=== PATIENT | male | born 1960 | race Caucasian/White ===

== ENCOUNTER 2017-10-05 16:51 | Emergency (ER) | payer BC ==
[~2017-10-05] VITALS: Ht 172.7 cm; Wt 117.9 kg
[~2017-10-05 16:51] MED LIST: Norco 5-325 Ta1 EACH PO; XARELTO15 MG PO
[2017-10-05] MEDS ORDERED: Norco 10-325 T1 EACH PO (18:58)
[2017-10-05] MEDS ORDERED: Silvadene20 GM TOP (18:58)
== END 2017-10-05 21:27 | disposition home or self-care (01) ==
LOC: ER 16:51
DX: T23.641A Corrosion of second degree of multiple right fingers (nail), including thumb, initial encounter (principal); T26.52XA Corrosion of left eyelid and periocular area, initial encounter; T26.51XA Corrosion of right eyelid and periocular area, initial encounter; T40.691A Poisoning by other narcotics, accidental (unintentional), initial encounter; Z88.5 Allergy status to narcotic agent; Z88.8 Allergy status to other drugs, medicaments and biological substances; Z79.899 Other long term (current) drug therapy; Z86.711 Personal history of pulmonary embolism; Z86.718 Personal history of other venous thrombosis and embolism; W34.19XA Accidental malfunction from other specified firearms, initial encounter
CPT/HCPCS: 16025; 36415; 71046; 96374; 96375; 96376; 99284; J1170; J1885; J2310; J2405